=== PATIENT | male | born 1970 | race Caucasian/White ===

== ENCOUNTER 2024-06-23 08:39 | Emergency (ER) | payer BC, SELFPAY ==
[2024-06-23 08:41] VITALS: BP 123/83
--- NOTE | 2024-06-23 08:59 | ED.GENMED ---
History of Present Illness
<Vimal Woodruff PA-C - Last Filed: 06/23/24 12:33>
General
Chief Complaint: Abdominal Symptoms
Source: patient and spouse
Time Seen by Provider: 06/23/24 08:52
History of Present Illness
History of Present Illness:
53-year-old male with past medical history of GI bleeding presenting to the emergency department from GI office for evaluation after patient had a witnessed vagal event while leaving the office after his appointment. Patient followed up with GI
today after 2 or 3 weeks ago started experiencing some upper abdominal discomfort with intermittent nausea and had 1 day of darker stool. At appointment today patient was scheduled for an outpatient endoscopy and was leaving to go get blood work
done at the outpatient facility when the vagal event happened. Patient's notes that he has a history of multiple vagal events in the past. Patient states that presently he is asymptomatic and without any other concern. He does note that
prior to syncopy he felt nauseous, lightheaded and diaphoretic with the symptoms all now resolved.
Past History
<Vimal Woodruff PA-C - Last Filed: 06/23/24 12:33>
Past History
ED Past Medical History: Other (UGI bleed)
ED Past Surgical History: None
Social History
Tobacco: Non-smoker
Alcohol: None
Drug: None
Personal:
Living: with family
Review of Systems
<Vimal Woodruff PA-C - Last Filed: 06/23/24 12:33>
Review of Systems
All Other Systems: ROS reviewed and negative except as documented in HPI and ROS
Phy Exam
<Vimal Woodruff PA-C - Last Filed: 06/23/24 12:33>
Physical Exam
Physical Exam:
GENERAL: Alert , in no apparent distress
EYE: clear conjunctiva b/l
HEAD: NCAT
ENT: mmm.
CARDIAC: Regular rate and rhythm .
LUNGS: Clear breath sounds bilaterally, no acute respiratory distress, no wheezes/rales/rhonchi
ABDOMEN: Soft, without focal tenderness, no r/g, no cvat
NEUROLOGICAL: Alert and oriented
SKIN: Warm and dry, skin intact.
MUSCULOSKELETAL: well perfused.
PSYCH: Normal and appropriate interaction.
Scores
<Vimal Woodruff PA-C - Last Filed: 06/23/24 12:33>
Heart Failure Risk
Heart Failure Risk Score: Not Applicable
Heart Score for Chest Pain Patients
STEMI patient?: Not applicable
Withdrawal Assessment of Alcohol
Withdrawal Assessment Completed?: Not applicable
Course
<Vimal Woodruff PA-C - Last Filed: 06/23/24 12:33>
Orders/Labs/Results
Orders:
Orders
06/23/24 08:59
Electrocardiogram (*1) Urgent
Reason for Study: Syncope
EKG- Treatment ONCE
Orthostatic VS- Treatment ONCE
06/23/24 09:17
Complete Blood Count/With Diff Urgent
Comprehensive Metabolic Panel Urgent
Abnormal Lab Results
06/23/24
09:17
RBC 4.64 L 10^6/uL
(4.70-6.10)
Hgb 12.9 L g/dL
(13.0-18.0)
Hct 38.3 L %
(39.0-52.0)
Absolute Neuts (auto) 6.9 H 10^3/uL
(1.4-6.5)
Lymphocytes % 17.8 L %
(20.5-51.1)
Glucose 117 H mg/dl
(70-99)
Alkaline Phosphatase 127 H U/L
(38-126)
06/23/24 09:17
06/23/24 09:17
Vital Signs
Initial and Last Documented VS:
Initial Vital Signs
Temp Pulse Resp BP Pulse Ox
98.0 F 62 16 123/83 98
06/23/24 08:41 06/23/24 08:41 06/23/24 08:41 06/23/24 08:41 06/23/24 08:41
Last Documented Vital Signs
Temp Pulse Resp BP Pulse Ox
98.0 F 77 21 130/86 99
06/23/24 08:41 06/23/24 10:17 06/23/24 09:54 06/23/24 10:17 06/23/24 09:30
<Mike Escalera MD - Last Filed: 06/23/24 10:05>
Orders/Labs/Results
Orders:
Orders
06/23/24 08:59
Electrocardiogram (*1) Urgent
Reason for Study: Syncope
EKG- Treatment ONCE
Orthostatic VS- Treatment ONCE
06/23/24 09:17
Complete Blood Count/With Diff Urgent
Comprehensive Metabolic Panel Urgent
Abnormal Lab Results
06/23/24
09:17
RBC 4.64 L 10^6/uL
(4.70-6.10)
Hgb 12.9 L g/dL
(13.0-18.0)
Hct 38.3 L %
(39.0-52.0)
Absolute Neuts (auto) 6.9 H 10^3/uL
(1.4-6.5)
Lymphocytes % 17.8 L %
(20.5-51.1)
Glucose 117 H mg/dl
(70-99)
Alkaline Phosphatase 127 H U/L
(38-126)
06/23/24 09:17
06/23/24 09:17
Vital Signs
Initial and Last Documented VS:
Initial Vital Signs
Temp Pulse Resp BP Pulse Ox
98.0 F 62 16 123/83 98
06/23/24 08:41 06/23/24 08:41 06/23/24 08:41 06/23/24 08:41 06/23/24 08:41
Last Documented Vital Signs
Temp Pulse Resp BP Pulse Ox
98.0 F 77 21 130/86 99
06/23/24 08:41 06/23/24 10:17 06/23/24 09:54 06/23/24 10:17 06/23/24 09:30
<Vimal Woodruff PA-C - Last Filed: 06/23/24 12:33>
MDM/Problems Addressed
Differential Diagnosis Includes:
vagal event, anemia, electrolyte abnormality, orthostasis
MDM/Problems Addressed:
53-year-old male presenting to the emergency department from GI office for evaluation after a had a witnessed vagal event following completion of the office visit. Spouse accompanied the patient to the visit as well as in the ER and states that he
has a history of vagal events in the past. They were going to walk over to the outpatient facility for the blood work to be completed but were directed to come to the emergency department for further evaluation. reports that patient was
scheduled to get CBC and a metabolic panel. Will order this here as well as EKG and check orthostatics. I suspect a vagal event/orthostasis is most likely diagnosis with anticipated discharge home however given the patient's history of GI bleeding
anemia is considered on differential.
<Vimal Woodruff PA-C - Last Filed: 06/23/24 12:33>
*Pulse Oximetry
Patient hypoxic: no
*EKG
Interpreted by ED Provider?: Yes
Heart Rate: 67
Rate: normal
Rhythm: sinus
Ischemia: no ischemia
*Rail Car [employer] Interpretation
Rate: normal
Rhythm: sinus
*Critical Care Note
Total Time (30-74mins, 75-104mins- exclusive of procedures): Not Applicable
Data Reviewed
Review of Other/Old Records Reveals: Labs and Records
<Vimal Woodruff PA-C - Last Filed: 06/23/24 12:33>
Patient Management
Escalation/DeEscalation of care consider admission/obs:
Patient's hemoglobin is within normal limits. Electrolytes and glucose are also unremarkable. Patient remains asymptomatic. EKG nonischemic and without any ectopy. Patient is stable for discharge home and continued outpatient management.
ED Attending Note
<Vimal Woodruff PA-C - Last Filed: 06/23/24 12:33>
-
Portions of this chart may have been created with voice recognition software.� Occasional wrong word or��sound alike� substitutions may have occurred due to the inherent limitations of voice recognition software.
<Mike Escalera MD - Last Filed: 06/23/24 10:05>
ED Attending Note
Patient seen and examined by attending physician: Yes
I performed the substantive portion of visit, reviewed & personally made and approve the management plan that is documented in note by myself or ROBI.: Yes
ED Attending Note:
53-year-old male sent from GI office with a near syncopal episode. Had been having vague mild upper left discomfort. Had dark stool last week although now brown. No chest pain shortness of breath. Became near syncopal when told he needed to get
lab work. Has history of near syncope in the past.
On exam patient is nontoxic in no distress. Warm and dry. Perfusing well. Lungs clear and equal. Heart regular rate and rhythm. Abdomen soft and nontender. Rectal exam Brown trace positive. Warm and dry. EKG within normal limits. No QT
intervals. No Brugada syndrome. Description is very vasovagal like. is in agreement who happens to be a cardiac nurse. Hemoglobin 12.9. PPI and follow-up per GI.
Discharge Plan
Departure
Patient Disposition: Home (Routine Discharge)
Date of Disposition: 06/23/24
Time of Disposition: 09:47
Patient with high blood pressure during this ER visit?: No
Discharge Problem:
Syncope
Instructions: Vasovagal Response (DC)
Prescriptions:
New
pantoprazole 40 mg tablet,delayed release (DR/EC)
40 mg PO DAILY Qty: 30 0RF
Referrals:
NONE,* [Family Provider] -
Interventions
Interventions:
*Risk Screen - Suicide Last Done: 06/23/24 08:41
*General Assessment Last Done: 06/23/24 09:21
*Neglect/Abuse Screening Last Done: 06/23/24 08:41
ED- Fall Risk Assessment Last Done: 06/23/24 09:22
*ED COVID-19 Vaccine History Last Done: 06/23/24 09:21
*Nursing Disposition Last Done: 06/23/24 10:17
Discharge Date and Time
Discharge Date/Time: 06/23/24 10:19
Print Language: INDIAN
[2024-06-23 09:08] VITALS: BMI 27.9
[2024-06-23 09:28] LABS: % Basophils 0.4 % (0-2); % Eosinophils 2.4 % (0-6); % Immature Granulocytes 0.3 % (0-0.5); % Lymphocytes 17.8 % (20.5-51.1); % Monocytes 6.5 % (1.7-9.3); % Neutrophils 72.6 % (42.2-75.2); Absolute Eosinophils 0.2 10^3/uL (0-0.7); Absolute Lymphocytes 1.7 10^3/uL (1.2-3.4); Absolute Monocytes 0.6 10^3/uL (0.1-0.6); Absolute Neutrophils 6.9 10^3/uL (1.4-6.5); Hematocrit 38.3 % (39.0-52.0); Hemoglobin 12.9 g/dL (13.0-18.0); Mean Corp Hgb Conc. 33.7 g/dL (33.0-37.0); Mean Corpuscular Hgb 27.8 pg (27.0-31.0); Mean Corpuscular Volume 82.5 fL (80.0-94.0); Nucleated Red Blood Cells % 0 % (-); Platelet Count 383 10^3/uL (130-400); Red Blood Cell Count 4.64 10^6/uL (4.70-6.10); Red Cell Dist. Width 12.8 % (11.5-14.5); White Blood Cell Count 9.6 10^3/uL (4.8-10.8)
[2024-06-23 09:39] LABS: ALT (SGPT) 21 U/L (0-50); AST (SGOT) 21 U/L (17-59); Albumin 4.2 g/dl (3.5-5.0); Alkaline Phosphatase 127 U/L (38-126); Blood Urea Nitrogen 13 mg/dl (9-20); Calcium 9.5 mg/dl (8.4-10.2); Carbon Dioxide 23 mmol/L (22-30); Chloride 105 mmol/L (98-107); Estimated Creatinine Clearance 84 ml/min; Glucose 117 mg/dl (70-99); Potassium 4.2 mmol/L (3.5-5.1); Sodium 141 mmol/L (135-145); Total Bilirubin 0.5 mg/dl (0.2-1.3); Total Protein 6.5 g/dl (6.3-8.2); eGFR > 60.00
[2024-06-23 09:54] VITALS: BP 130/86
[2024-06-23 10:17] VITALS: BP 130/86
== END 2024-06-23 10:19 | disposition home or self-care (01) ==
LOC: EMR 08:39
PROVIDERS: Physician Assistant Medical; EMERGENCY PHYSICIAN Emergency Medicine
DX: R55 Syncope and collapse (principal)
CPT/HCPCS: 99283; 80053; 85025; 93005

== ENCOUNTER → 2024-07-29 06:33 | Day surgery (SDC) | payer BC, SELFPAY | LOC: GI 06:33 | PROVIDERS: ATTENDING PHYSICIAN Student in an Organized Health Care Education/Training Program | DX: K20.0 Eosinophilic esophagitis (principal); K44.9 Diaphragmatic hernia without obstruction or gangrene; K31.89 Other diseases of stomach and duodenum; Q40.2 Other specified congenital malformations of stomach; R13.10 Dysphagia, unspecified; K30 Functional dyspepsia; K92.1 Melena; Z87.11 Personal history of peptic ulcer disease | CPT/HCPCS: 43239; 88305; 88342 ==

== ENCOUNTER 2025-03-16 06:26 | Day surgery (SDC) | payer BC, SELFPAY | END 2025-03-16 12:20 | disposition home or self-care (01) | LOC: GI 06:26 | PROVIDERS: ATTENDING PHYSICIAN Student in an Organized Health Care Education/Training Program | DX: D50.9 Iron deficiency anemia, unspecified (principal); K63.3 Ulcer of intestine; K52.9 Noninfective gastroenteritis and colitis, unspecified; Z86.0102 Personal history of hyperplastic colon polyps | CPT/HCPCS: 45380; 88305 ==